=== PATIENT | female | born 1985 | race Caucasian/White ===

== ENCOUNTER 2023-08-07 07:57 | Emergency (ER) | payer OTHER, SELFPAY ==
[2023-08-07 07:58] VITALS: BP 133/86; PULSE 81; RESP 17; TEMP 35.7; O2SAT 95; BMI 38.9
--- NOTE | 2023-08-07 08:04 | EDS_ITS ---
HPI HPI - GI History of Present Illness Chief Complaint: Abd Pain Informant: patient Abdominal Pain/Flank Pain Onset: Today Context: Gradual Onset Timing: Continuous Quality: Aching Location: RLQ Worsened by: - (Curling her knees up into a ball) Relieved by: - (Warm bath) Nausea/Vomiting/Emesis GI Symptom: Positive for Nausea and Vomiting Quality: Positive for Nonbilious; Negative for Blood streaks, Coffee ground or Hematemesis Diarrhea/Melena/Hematochezia GI Symptom: Positive for Diarrhea; Negative for Melena or Hematochezia Associated Symptoms Associated Symptoms: Positive for Dysuria and Urgency; Negative for Frequency or Hematuria Narrative Narrative: Patient presents with abdominal pain that began this morning. Patient states she has been having some urinary symptoms over the past week. Patient states her pain and gradually got worse this morning. Patient states pain is mainly over the right lower abdomen. Patient describes her pain as aching. Patient states it is worse when she curls her knees up into a ball. Patient states it got better with a warm bath. Patient admits to some nausea and vomiting this morning. Patient thinks there could have been a couple specks of blood but denies any ananya hematemesis or coffee-ground emesis. Patient states she has had some diarrhea recently. Patient denies any melena or hematochezia. Patient admits to some dysuria and urgency. Patient states her last menstrual period was approximately 1 week ago. PFSH PFSH Home Medications hydrocodone-acetaminophen 5-325mg 5mg-325mg 1 tab PO Q6H PRN PRN Pain 3 days #10 TABLETS 08/07/23 [Rx Last Taken Unknown] metformin 500 mg tablet,extended release 24 hr 500 mg PO QPM 08/07/23 [History Last Taken Unknown] tamsulosin 0.4 mg capsule 0.4 mg PO DAILY #7 CAPSULES 08/07/23 [Rx Last Taken Unknown] Allergy/AdvReac Type Severity Reaction Status Date / Time No Known Allergies Allergy Verified 08/07/23 07:59 Surgical History (Updated 08/07/23 @ 08:[address] Willi Brambila DO) H/O section Social History (Updated 08/07/23 @ 08:[address] Willi Brambila DO) Smoking Status: Never smoker alcohol intake: current alcohol intake frequency: holidays/special occasions only ROS ROS ED Constitutional Constitutional ED: Denies chills or fever(s) Eyes Eyes: Denies blurry vision or change in vision ENT ENT ED: Denies rhinorrhea or sore throat Cardiovascular Cardiovascular: Denies chest pain or palpitations Respiratory/Chest Respiratory/Chest: Denies cough or dyspnea Gastrointestinal Gastrointestinal: Reports abdominal pain, diarrhea, nausea and vomiting Genitourinary Genitourinary ED: Reports dysuria; Denies hematuria Musculoskeletal Musculoskeletal: Denies back pain or neck pain Integumentary Denies abscess or rash Neurologic Neurologic: Denies headache(s) or weakness Allergic/Immunologic Allergic/Immunologic ED: Denies mouth swelling or urticaria EXAM Physical Exam Const Vital Signs: 08/07/23 07:58 08/07/23 09:58 Temperature 96.3 F L 97.6 F L Temperature Source Temporal Oral Pulse Rate 81 72 Respiratory Rate 17 15 Blood Pressure 133/86 H 137/69 H Blood Pressure Mean 101 91 Pulse Ox 95 98 Oxygen Delivery Method Room Air Room Air Positive well nourished and well developed General Appearance ED: well developed and NAD HEENT Reports moist mucous membranes Neck supple and no JVD Resp normal respiratory effort and clear to auscultation bilaterally Cardio regular rate and regular rhythm GI non-distended Palpation: soft and tender RLQ; Negative for guarding or rebound tenderness present Extremity full ROM Neuro CN's II-XII intact bilaterally, moves all extremities and no sensory deficits noted Sensorium / Orientation: alert Motor Exam: strength 5/5 throughout Psych mental status grossly normal and thought process normal MDM MDM MDM Narrative Medical decision making narrative: Differential diagnosis includes appendicitis, bowel obstruction, perforation, urinary tract infection, ureteral calculus, ovarian cyst, ovarian torsion, ectopic , and viral illness. CBC will be obtained to assess for leukocytosis and anemia. Basic metabolic profile will be obtained to assess for electrolyte abnormality and renal function. Urinalysis will be obtained to assess for urinary tract infection and hematuria. Serum hCG will be obtained to assess for . CT scan of the abdomen pelvis will be obtained to assess for appendicitis, ureteral calculus, and ovarian cyst. Lab Data Attestation: I reviewed the patient's lab results. Lab results narrative: CBC was reviewed. There is a slight leukocytosis of 12.6. The remainder is within normal limits. Basic metabolic profile was reviewed and was within normal limits. Serum hCG was reviewed and was negative. Urinalysis was reviewed. There are 25-50 red blood cells. Occult blood was 250. There is no evidence of urinary tract infection. Labs: Laboratory Results - last 24 hr 08/07/23 08/07/23 08:17 08:30 WBC 12.6 H RBC 4.54 Hgb 12.7 Hct 40.0 MCV 88.1 MCH 28.0 MCHC 31.8 L RDW Std Deviation 42.9 RDW Coeff of Sandip 13.2 Plt Count 408 MPV 8.7 Immature Gran % (Auto) 0.500 Neut % (Auto) 86.3 H Lymph % (Auto) 9.6 L [place] % (Auto) 3.2 Eos % (Auto) 0.2 Baso % (Auto) 0.2 Absolute Neuts (auto) 10.9 H Absolute Lymphs (auto) 1.21 Nucleated RBC % 0 Sodium 137 Potassium 3.8 Chloride 108 H Carbon Dioxide 26.0 Anion Gap 3 L BUN 11 Creatinine 0.88 Estim Creat Clear Calc 105.87 Est GFR (MDRD) Af Amer 93 Est GFR (MDRD) Non-Af 77 BUN/Creatinine Ratio 12.5 Glucose 109 H Calcium 8.3 L Serum , Qual NEGATIVE Urine Color Yellow Urine Clarity Sl. Cloudy Urine pH 6.0 Ur Specific [place] 1.025 Urine Protein 30 H Urine Glucose (UA) Normal Urine Ketones 5 H Urine Occult Blood 250 H Urine Nitrite Negative Urine Bilirubin Negative Urine Urobilinogen 1 H Ur Leukocyte Esterase 25 H Urine RBC 25-50 SEEN Urine WBC 0-5 SEEN Ur Squamous Epith Cells 0-5 SEEN Urine Bacteria 1+ Urine Mucus 2+ Radiography Diagnostic Testing: Clinical Impression(s) from Imaging Studies Abdomen/Pelvis CT 08/07/23 08:25 IMPRESSION: There is a 4.8 mm calculus at the right ureterovesical junction causing mild degree of right hydronephrosis and right hydroureter. Electronically Signed: Caleb Pablo MD at 10:38 EDT , CT scan of the abdomen pelvis was obtained. There is a 4.8 mm calculus at the right ureterovesicular junction causing right hydronephrosis and hydroureter. There is no other acute abnormality noted. This was interpreted by the radiologist and was also independently reviewed by myself. Treatment and Re-Evaluation :: Patient was given IV fluids, morphine, and Zofran. Patient is feeling better. Patient is resting comfortably on reevaluation. Patient was advised of her findings. Patient was instructed to drink plenty of fluids. Patient was given prescriptions for Gregory and Flomax. Patient was instructed to follow-up with her primary care physician in 5 to 7 days. Patient was also given referral for urology. Patient understood and was agreeable with the plan. All questions were answered. Discharge Plan Triage Chief Complaint: Abd Pain ED Provider: Willi Brambila Dx/Rx/DC Orders Clinical Impression: Right distal ureteral calculus, Right lower quadrant abdominal pain Instructions: ED Kidney Stone with Pain Prescriptions: New hydrocodone-acetaminophen [hydrocodone-acetaminophen] 5-325 mg tablet 1 tab PO Q6H PRN PRN (Reason: Pain) 3 Days Qty: 10 0RF tamsulosin [tamsulosin] 0.4 mg capsule 0.4 mg PO DAILY Qty: 7 0RF No Action metformin 500 mg tablet extended release 24 hr 500 mg PO QPM Primary Care Provider: LILY MCKEON Referrals: LILY MCKEON [Other] - 5-7 Days Roxanna Whitfield MD [Med Staff - Active Staff] - 3-5 Days NOT,DEFINED [Non-Staff] - Disposition Disposition: Home, Self Care
--- NOTE | 2023-08-07 08:25 | CT_ITS ---
STUDY: CT ABDOMEN AND PELVIS WITH CONTRAST REASON FOR EXAM: Female, 38 years old. Abdominal pain -- IV PO Contrast. Right lower quadrant pain. Urinary frequency. RADIATION DOSAGE (If Supplied By Facility): CTDIvol = ( 16.93 ) mGy, DLP = ( 1168.45 ) mGycm TECHNIQUE: Transaxial images were obtained from the dome of the diaphragm to the symphysis pubis with oral contrast. Oral and amp; IV Gastrografin and amp; 100mL Isovue-300 was administered. Sagittal and coronal images were reconstructed. Individualized dose optimization techniques were used for this CT. COMPARISON: None. FINDINGS: The visualized lung bases are unremarkable. The visualized portions of the heart are within normal limits. Normal liver. Normal gallbladder and extrahepatic biliary system. Normal spleen. Normal pancreas. Normal bilateral adrenal glands. There is a mild degree of right-sided hydronephrosis and right hydroureter with periureteric stranding due to a 4.8 mm calculus at the right ureterovesical junction. Normal left kidney. There is a small hiatal hernia. Normal small intestine. Normal colon. The appendix is visualized and appears normal. Normal abdominal aorta. Normal inferior vena cava. Normal retroperitoneum. Normal urinary bladder. Small follicles are seen in both ovaries. There is a small umbilical hernia containing fat. Normal osseous structures. CT/Abdomen/Pelvis WITH Contrast IMPRESSION: There is a 4.8 mm calculus at the right ureterovesical junction causing mild degree of right hydronephrosis and right hydroureter. Electronically Signed: Caleb Pablo MD at 10:38 EDT ,
[2023-08-07] MEDS: Morphine 4 MG/ML Syringe IV (08:35)
[2023-08-07] MEDS: 0.9% Normal Saline (1000mL) 1,000 ML 1000 ML IV (08:35)
[2023-08-07] MEDS: Ondansetron 4 MG/2 ML Vial IV (08:35)
[2023-08-07 08:39] LABS: Absolute Lymphocyte Count 1.21 X10^3/uL (0.83-4.51); Absolute Neutrophil Count 10.9 X10^3/uL (2.0-7.7); Basophil# 0.03 X10^3/uL; Basophil% 0.2 % (0-1); Eosinophil# 0.02 X10^3/uL; Eosinophils% 0.2 % (0-5); Hemoglobin 12.7 g/dL (12.0-15.0); Lymphocyte # 1.21 X10^3/ul (0.83-4.51); Lymphocyte % 9.6 % (19-41); Mean Corp Hgb Conc 31.8 g/dL (32-36); Mean Corpuscular Volume 88.1 fL (81-99); Mean Platelet Vol. 8.7 fl (6.2-12.0); Monocyte% 3.2 % (0-10); NRBC Flagged by Analyzer 0 % (0-5); Neutrophil # 10.89 X10^3/uL (2.7-7.7); Neutrophil % 86.3 % (47-70); Platelet Count 408 K/mm3 (150-450); RBC Distribution Width CV 13.2 % (11.6-14.6); RBC Distribution Width SD 42.9 fl (35.1-43.9); Red Blood Count 4.54 M/mm3 (4.2-5.4); White Blood Count 12.6 K/mm3 (4.4-11.0)
[2023-08-07 08:40] LABS: Color, Urine Yellow (Yellow); Glucose, Dipstick Normal (Normal); Ketone-Dipstick 5 mg/dl (Negative); Leukocyte Esterase-Dipstick 25 /ul (Negative); Nitrite-Dipstick Negative (Negative); Occult Blood-Urine 250 /ul (Negative); Protein-Dipstick 30 mg/dl (Negative); Specific Gravity, Urine 1.025 (1.002-1.030); Urine Bilirubin Dipstick Negative (Negative); Urine Clarity Sl. Cloudy (Clear); Urine Urobilinogen 1 mg/dl (Normal)
[2023-08-07 08:53] LABS: Bacteria 1+ /hpf (None Seen); Mucous, Urine 2+ /hpf (<or=2+); Red Blood Cells-Urine 25-50 SEEN /hpf (0-5); Squamous Epithelial Cells - UA 0-5 SEEN /hpf (5-10); White Blood Cells 0-5 SEEN /hpf (0-5)
[2023-08-07 08:55] LABS: Internal QC Validated? YES +Cl - CLEAR BKGD; Pregnancy, Serum, hCG Quali. NEGATIVE Negative
[2023-08-07 09:00] LABS: Anion Gap 3 (5-15); BUN 11 mg/dL (7-18); BUN/Creat Ratio 12.5 RATIO (10-20); Calcium,Total 8.3 mg/dL (8.5-10.1); Chloride 108 mmol/L (98-107); Creatinine, Serum 0.88 mg/dL (0.55-1.02); EST Glomerular Filtration Rate 77 mL/min (>60); Est Glom Filt Rate - Afr Amer 93 mL/min (>60); Estimated Creatinine Clearance 105.87 ml/min; Glucose 109 mg/dL (74-106); Potassium 3.8 mmol/L (3.5-5.1); Sodium Level 137 mmol/L (136-145)
[2023-08-07 09:58] VITALS: BP 137/69; PULSE 72; RESP 15; TEMP 36.4; O2SAT 98
[2023-08-07 11:00] VITALS: BP 138/71; PULSE 76; RESP 15; TEMP 36.4; O2SAT 98
[2023-08-07 11:16] VITALS: BP 131/69; PULSE 72; RESP 16; TEMP 36.4; O2SAT 99
== END 2023-08-07 11:17 | disposition home or self-care (01) ==
PROVIDERS: Emergency Provider Emergency Medicine; Visit Provider Emergency Medicine
DX: N13.2 Hydronephrosis with renal and ureteral calculous obstruction (principal); R10.31 Right lower quadrant pain
CPT/HCPCS: 74177; 80048; 81001; 84703; 85025; 96361; 96374; 96375; 99283; J7030; Q9967; A4216; J2405